=== PATIENT | female | born 1980 | race Caucasian/White ===

== ENCOUNTER 2017-09-21 15:53 | Emergency (ER) | payer MEDICAID ==
[~2017-09-21] VITALS: Ht 152.4 cm; Wt 78.5 kg
[2017-09-21 16:57] VITALS: Ht 152.4 cm; Wt 78.5 kg
[2017-09-21 19:38] VITALS: BP 129/79
== END 2017-09-21 19:38 | disposition home or self-care (01) ==
LOC: ED 15:53
DX: S09.90XA Unspecified injury of head, initial encounter (principal); R03.0 Elevated blood-pressure reading, without diagnosis of hypertension; W20.8XXA Other cause of strike by thrown, projected or falling object, initial encounter; Y93.89 Activity, other specified; Y99.8 Other external cause status; Y92.89 Other specified places as the place of occurrence of the external cause
CPT/HCPCS: Q0162